=== PATIENT | female | born 1960 | race Caucasian/White ===

== ENCOUNTER 2017-08-12 07:46 | Emergency (ER) | payer OTHER ==
[~2017-08-12] VITALS: Ht 170.2 cm; Wt 78.0 kg
[~2017-08-12 07:46] MED LIST: BENADRYL25 MG PO; CYMBALTA60 MG; IMITREX100 MG PO
[2017-08-12] MEDS ORDERED: VITAMIN B-12500 MCG PO (07:56)
[2017-08-12] MEDS ORDERED: [UNRECOGNIZED DRUG - REMARK] (07:56)
[2017-08-12 08:08] LABS: HEMOGLOBIN 14.4 gm/dL (12.0-15.0); NUCLEATED RBCS 0 /100WBC
[2017-08-12 08:10] LABS: ABSOLUTE EOSINOPHILS 0.1 thou/uL (0.0-0.7); ABSOLUTE LYMPHOCYTES 2.2 thou/uL (0.8-5.3); ABSOLUTE MONOCYTES 0.4 thou/uL (0.0-1.2); ABSOLUTE NEUTROPHILS 3.2 thou/uL (1.6-8.1); BASOPHILS 0.7 %; EOSINOPHILS 1.6 %; HEMATOCRIT 42.5 % (37.0-47.0); LYMPHOCYTES 36.6 %; MCH 31.2 pg (26.0-34.0); MCHC 33.8 g/dL (28.0-37.0); MCV 92.4 fL (80.0-100.0); MONOCYTES 7.4 %; MPV 8.4 fl. (7.2-11.1); PLATELET COUNT* 216 thou/uL (150-400); POLYS 53.7 %
[2017-08-12 08:15] LABS: ANION GAP 9 mmol/L (7-16); BUN 17 mg/dL (7-18); CALCIUM 9.2 mg/dL (8.5-10.1); CHLORIDE 105 mmol/L (98-107); CO2 29 mmol/L (21-32); CREATININE 0.9 mg/dL (0.6-1.3); GLUCOSE 101 mg/dL (70-99); POTASSIUM 3.9 mmol/L (3.5-5.1); SODIUM 143 mmol/L (136-145)
[2017-08-12 08:16] LABS: PROTIME 10.2 Seconds (9.20-11.50)
[2017-08-12 08:25] LABS: ALBUMIN 3.8 g/dL (3.4-5.0); ALKALINE PHOSPHATASE 67 U/L (46-116); LIPASE 136 U/L (73-393); NT-PRO BRAIN NAT PEPTIDE 93 pg/mL (<300); SGOT 32 U/L (15-37); SGPT 28 U/L (30-65); TOTAL BILIRUBIN 0.4 mg/dL (<0.1-1.0); TOTAL PROTEIN 7.4 g/dL (6.4-8.2); TROPONIN-I LEVEL <0.06 ng/mL (<0.06)
--- NOTE | 2017-08-12 11:08 | EKG ---
[place] [address] ELECTROCARDIOGRAM REPORT Name: SIDDHARTHA PLATT Room: [facility]#: [id number] Admission: 08/12/17 Attend Phys: Discharge: Date of : 56 Report #: [id number] THIS REPORT FOR: //name// [facility] ED Test Date: 2017-08-12 Test Time: 07:51:53 Pat Name: SIDDHARTHA PLATT Department: Room: Gender: F Wagon Driver: LENY : 1960 Requested By: Randolph Taylor Order Number: [id number] MD: Jacob Short Measurements Intervals [place] Rate: 115 P: 73 [place]: 172 QRS: -79 QRSD: 88 T: 37 QT: 309 QTc: 428 Interpretive Statements Sinus tachycardia Left anterior fascicular block RSR' in V1 or V2, right VCD or RVH No previous ECG available for comparison Electronically Signed On 08-12-2017 11:08:08 GENERAL MAINTENANCE TECHNICIAN by Jacob Short [email or web address] <ELECTRONICALLY SIGNED> By: Jacob Short MD, [facility] 08/12/17 [id number] Jacob Short MD, FACC /EPI
--- NOTE | 2017-08-12 13:52 | EXE ---
[place] [address] STRESS ECHOCARDIOGRAM Name: SIDDHARTHA PLATT Room: [facility]#: [id number] Admission: 08/12/17 Attend Phys: Discharge: Date of : 56 Date of Service: 08/12/17 1351 Report #: [id number] THIS REPORT FOR: //name// APPROVED REPORT Exam: Stress Echocardiogram Indication: Chest pain , Dyspnea , Palpitations Patient Location: In-Patient Stress Nurse: Sarah Vegas RN Room #: Supervising Physician: Jacob Short MD Status: routine Ht: 5 ft 7 in HR: 86 bpm BP: 92/69 mmHg Medical History Cardiac Risk Factors: Tobacco History (Former) Procedure The patient underwent an Exercise Stress Test using the Olu Protocol. Blood pressure, heart rate, and EKG were monitored. An Echocardiogram was performed by lay out technician in four stages in quad fashion. At peak stress, four selected images were obtained and placed side by side with resting images for comparison. Stress Test Details Stress Test: Exercise stress testing was performed using a Olu protocol. HR Resting HR: 86 bpm Max Heart Rate (APMHR): 161 bpm Max HR Achieved: 154 bpm Target HR (85% APMHR): 136 bpm % of APMHR: 95 Recovery HR: 97 bpm HR response to stress: Normal HR response to stress BP Resting BP: 92/69 mmHg Max BP: 136/59 mmHg Recovery BP: 141/63 mmHg ECG Resting ECG: Sinus Rhythm, RBBB Stress ECG: Sinus Tachycardia Maximum ST Deviation: 0 [place] [address] STRESS ECHOCARDIOGRAM Name: SIDDHARTHA PLATT Room: [facility]#: [id number] Admission: 08/12/17 Attend Phys: Discharge: Date of : 56 Date of Service: 08/12/17 1351 Report #: [id number] Recovery ECG: Sinus Rhythm, RBBB Recovery ST Deviation: 0 mm Clinical Reason for Termination: Dyspnea,Lightheaded Exercise duration: 4 min 46 sec Highest Stage Achieved: Stage 2: 2.5 mph at 12% grade. Exercise capacity: 6.73 METs Pre-Stress Echo The resting Echocardiogram showed normal left ventricular contractility with an estimated Ejection Fraction of about 55-60%. Post-Stress Echo The stress Echocardiogram showed normal left ventricular contractility with an estimated Ejection Fraction of about 65-70%. Conclusion Clinical Response: Non-ischemic Exercise Capacity: Below Average Stress ECG Response: Non-ischemic Stress Echo Images: Non-ischemic low risk stress echo for future cardiac events Other Information Study Quality: Good <Conclusion> low risk stress echo for future cardiac events <ELECTRONICALLY SIGNED> By: Jacob Short MD, FACC 08/12/17 1351 1351 1351 Jacob Short MD, [facility]
[2017-08-12 14:16] VITALS: BP 94/70
== END 2017-08-12 14:17 | disposition home or self-care (01) ==
LOC: M.ERS 07:46
PROVIDERS: Emergency Medicine
DX: R07.89 Other chest pain (principal); F17.210 Nicotine dependence, cigarettes, uncomplicated; Z88.0 Allergy status to penicillin